=== PATIENT | male | born 1985 | race Caucasian/White ===

== ENCOUNTER 2021-02-03 16:42 | Emergency (ER) | payer MEDICARE, MEDICAID ==
--- NOTE | 2021-02-03 17:19 | EDM.PDOCBH ---
ED HPI GENERAL MEDICAL PROBLEM - General Stated Complaint: MEDICAL VIA [facility]TH Time Seen by Provider: 02/03/21 17:12 Source of Information: Reports: Patient, EMS History Limitations: Reports: Intoxication - History of Present Illness INITIAL COMMENTS - FREE TEXT/NARRATIVE: Is a 35-year-old gentleman who was transferred from [facility] to [facility] he was at the facility for approximately 4 hours became agitated slamming doors threatened suicidal ideation. EMS services were called transported to [place] emergency department for evaluation. Initially the gentleman was cooperative then became agitated using multiple swear words was threatening to staff. He did approach one of the nursing staff with an intimidating gesture then turned around and slammed the door. It was at this point time we called law enforcement I was concerned about staff safety. The gentleman asked if he could go I felt this was the best option to diffuse the situation. He was not on a hold he was under the influence of alcohol by the time law enforcement arrived we did not want to press charges therefore law enforcement took him into custody. ED ROS GENERAL - Review of Systems Review Of Systems: Unable To Obtain Reason Not Obtained: Uncooperative ED EXAM, BEHAVIORAL HEALTH - Physical Exam Exam: See Below Text/Narrative:: Gentleman displayed threatening behavior, intimidation to nursing staff, multiple swear words. Exam Limited By: Intoxication COURSE, BEHAVIORAL HEALTH COMP - Course Vital Signs: Last Vital Signs Temp 98.0 F 02/03/21 16:53 Pulse 116 H 02/03/21 16:53 Resp 18 02/03/21 16:53 BP 117/70 02/03/21 16:53 Pulse Ox 100 02/03/21 16:53 Departure - Departure Time of Disposition: 17:20 Disposition: Left Without Being Seen 07 Condition: Undetermined Clinical Impression: Threatening behavior, Threatening suicide, Alcohol intoxication - Discharge Information Referrals: PCP,None [Primary Care Provider] - Sepsis Event Note (ED) - Focused Exam Vital Signs: Vital Signs Temp Pulse Pulse Resp BP Pulse Ox 02/03/21 16:53 98.0 F 116 H 116 H 18 105/43 L 100
== END 2021-02-03 17:18 | disposition left against medical advice (07) ==
LOC: JP.ED 16:42
DX: F10.129 Alcohol abuse with intoxication, unspecified (principal); F91.9 Conduct disorder, unspecified
CPT/HCPCS: 99284

== ENCOUNTER 2021-02-03 21:53 | Emergency (ER) | payer MEDICARE, MEDICAID ==
--- NOTE | 2021-02-03 22:31 | EDM.PDOCBH ---
<Minor Brennan - Last Filed: 02/04/21 06:19> ED HPI GENERAL MEDICAL PROBLEM - General Chief Complaint: Behavioral/Psych Stated Complaint: MEDICAL VIA NORTH Time Seen by Provider: 02/03/21 21:55 Source of Information: Reports: Patient, Police History Limitations: Reports: Intoxication - History of Present Illness INITIAL COMMENTS - FREE TEXT/NARRATIVE: 35-year-old male, is here for the second time today. He was admitted to [facility] from another facility today and shortly after arriving became agitated, uncooperative and was "suicidal". They tried to discharge him but had to call EMS because of his aggravation. He was brought into the emergency room, initially was cooperative but then became disruptive and was discharged no longer saying he was suicidal but did not want to be examined any further. Apparently he left the hospital, with straight to the liquor store, got very intoxicated, went to [facility] to buy some food and then after he was done boldly staff that he was "suicidal". Again the police responded ambulance was called and now he is here. He is obviously very intoxicated. Onset: Unknown/Unsure - Related Data Allergies Allergy/AdvReac Type Severity Reaction Status Date / Time No Known Allergies Allergy Verified 02/03/21 23:28 Home Meds: Home Meds . [Unable to Verify Home Med List] 02/03/21 [History] ED ROS GENERAL - Review of Systems Review Of Systems: See Below (Patient is uncooperative with the review of systems, just simply states "I do not need to be here".) Respiratory: Denies: Shortness of Breath GI/Abdominal: Denies: Nausea, Vomiting Psychiatric: Reports: Other (Claims he is depressed and suicidal, admits to being admitted to psychiatric facilities in the past) ED EXAM, BEHAVIORAL HEALTH - Physical Exam Exam: See Below Exam Limited By: Intoxication General Appearance: No Apparent Distress Eye Exam: Bilateral Eye: Normal Inspection (No obvious jaundice) Head: Atraumatic Respiratory/Chest: No Respiratory Distress Cardiovascular: Regular Rate, Rhythm, Tachycardia Neurological: Alert Psychiatric: Depressed Mood, Inattentive Skin Exam: Warm, Dry COURSE, BEHAVIORAL HEALTH COMP - Course Re-Assessment/Re-Exam: Urine drug screen was obtained which was negative but EtOH is now 0.324. Glucose is 204, CBC normal. Patient passed out shortly after arrival, any kind of crisis intervention or attempted transfer at this time is not worthwhile. We will allow him to sober up and he can be reassessed. Patient remained cooperative through most of the night, did get some nausea and retching so was given some Zofran. Care turned over at 7AM Departure - Departure Disposition: DC/Tfer to Psych Hosp/Unit [facility] Clinical Impression: Alcohol abuse, Depression with suicidal ideation - Discharge Information Referrals: PCP,None [Primary Care Provider] - Forms: ED Department Discharge <Charles Mattson - Last Filed: 02/04/21 15:37> ED HPI GENERAL MEDICAL PROBLEM - History of Present Illness INITIAL COMMENTS - FREE TEXT/NARRATIVE: [employer] EMR reviewed for Mr. Anne. Multiple meds prescribed at that time. It doesn't appear like he has refilled any of them since last Mar. COURSE, BEHAVIORAL HEALTH COMP - Course Vital Signs: Last Vital Signs Temp 36.8 C 02/03/21 23:37 Pulse 131 H 02/03/21 23:37 Resp 11 L 02/03/21 23:37 BP 129/58 L 02/03/21 23:37 Pulse Ox 96 02/03/21 23:37 Orders, Labs, Meds: Active Orders 24 hr Category Date Time Status metFORMIN [Glucophage] Med 02/04/21 09:15 Active 1,000 mg PO BIDMEALS Medication Orders Metformin HCl (Metformin 500 Mg Tab) 1,000 mg PO BIDMEALS NIRANJAN Laboratory Tests 02/03/21 02/03/21 02/03/21 Range/Units 22:16 22:16 22:16 WBC 8.9 (4.5-11.0) K/uL RBC 4.54 (4.30-5.90) M/uL Hgb 13.4 (12.0-15.0) g/dL Hct 39.4 L (40.0-54.0) % MCV 87 (80-98) fL MCH 30 (27-31) pg MCHC 34 (32-36) % Plt Count 430 H (150-400) K/uL Neut % (Auto) 49.0 (36-66) % Lymph % (Auto) 44.2 H (24-44) % Yell % (Auto) 5.5 (2-6) % Eos % (Auto) 0.3 L (2-4) % Baso % (Auto) 1.0 (0-1) % Sodium 141 (140-148) mmol/L Potassium 3.5 L (3.6-5.2) mmol/L Chloride 103 (100-108) mmol/L Carbon Dioxide 24 (21-32) mmol/L Anion Gap 17.5 H (5.0-14.0) mmol/L BUN 14 (7-18) mg/dL Creatinine 0.8 (0.8-1.3) mg/dL Est Cr Clr Drug Dosing TNP Estimated GFR (MDRD) > 60 (>60) Glucose 204 H (74-106) mg/dL Calcium 8.2 L (8.5-10.1) mg/dL Magnesium (1.8-2.4) mg/dL TSH, Ultra Sensitive (0.358-3.740) uIU/mL Urine Color (YELLOW) Urine Appearance (CLEAR) Urine pH (5.0-8.0) Ur Specific Foster (1.008-1.030) Urine Protein (NEGATIVE) mg/dL Urine Glucose (UA) (NEGATIVE) mg/dL Urine Ketones (NEGATIVE) mg/dL Urine Occult Blood (NEGATIVE) Urine Nitrite (NEGATIVE) Urine Bilirubin (NEGATIVE) Urine Urobilinogen (0.2-1.0) EU/dL Ur Leukocyte Esterase (NEGATIVE) Urine RBC (0-5) Urine WBC (0-5) Ur Epithelial Cells Amorphous Sediment Urine Bacteria Urine Mucus Urine Other Urine Opiates Screen (NEGATIVE) Ur Oxycodone Screen (NEGATIVE) Urine Methadone Screen (NEGATIVE) Ur Propoxyphene Screen (NEGATIVE) Ur Barbiturates Screen (NEGATIVE) Ur Tricyclics Screen (NEGATIVE) Ur Phencyclidine Scrn (NEGATIVE) Ur Amphetamine Screen (NEGATIVE) U Methamphetamines Scrn (NEGATIVE) Urine MDMA Screen (NEGATIVE) U Benzodiazepines Scrn (NEGATIVE) U Cocaine Metab Screen (NEGATIVE) U Marijuana (THC) Screen (NEGATIVE) Ethyl Alcohol 325 mg/dL SARS CoV-2 RNA Rapid TIM 02/03/21 02/04/21 02/04/21 Range/Units 22:19 08:57 09:05 WBC (4.5-11.0) K/uL RBC (4.30-5.90) M/uL Hgb (12.0-15.0) g/dL Hct (40.0-54.0) % MCV (80-98) fL MCH (27-31) pg MCHC (32-36) % Plt Count (150-400) K/uL Neut % (Auto) (36-66) % Lymph % (Auto) (24-44) % Yell % (Auto) (2-6) % Eos % (Auto) (2-4) % Baso % (Auto) (0-1) % Sodium (140-148) mmol/L Potassium (3.6-5.2) mmol/L Chloride (100-108) mmol/L Carbon Dioxide (21-32) mmol/L Anion Gap (5.0-14.0) mmol/L BUN (7-18) mg/dL Creatinine (0.8-1.3) mg/dL Est Cr Clr Drug Dosing Estimated GFR (MDRD) (>60) Glucose (74-106) mg/dL Calcium (8.5-10.1) mg/dL Magnesium (1.8-2.4) mg/dL TSH, Ultra Sensitive (0.358-3.740) uIU/mL Urine Color Yellow (YELLOW) Urine Appearance Clear (CLEAR) Urine pH 7.0 (5.0-8.0) Ur Specific Foster >= 1.030 (1.008-1.030) Urine Protein 100 H (NEGATIVE) mg/dL Urine Glucose (UA) Negative (NEGATIVE) mg/dL Urine Ketones Trace H (NEGATIVE) mg/dL Urine Occult Blood Negative (NEGATIVE) Urine Nitrite Negative (NEGATIVE) Urine Bilirubin Negative (NEGATIVE) Urine Urobilinogen 0.2 (0.2-1.0) EU/dL Ur Leukocyte Esterase Negative (NEGATIVE) Urine RBC 0-5 (0-5) Urine WBC 0-5 (0-5) Ur Epithelial Cells Not seen Amorphous Sediment Not seen Urine Bacteria Rare Urine Mucus Moderate Urine Other Urine Opiates Screen Negative (NEGATIVE) Ur Oxycodone Screen Negative (NEGATIVE) Urine Methadone Screen Negative (NEGATIVE) Ur Propoxyphene Screen Negative (NEGATIVE) Ur Barbiturates Screen Negative (NEGATIVE) Ur Tricyclics Screen Negative (NEGATIVE) Ur Phencyclidine Scrn Negative (NEGATIVE) Ur Amphetamine Screen Negative (NEGATIVE) U Methamphetamines Scrn Negative (NEGATIVE) Urine MDMA Screen Negative (NEGATIVE) U Benzodiazepines Scrn Negative (NEGATIVE) U Cocaine Metab Screen Negative (NEGATIVE) U Marijuana (THC) Screen Negative (NEGATIVE) Ethyl Alcohol mg/dL SARS CoV-2 RNA Rapid TIM Negative 02/04/21 02/04/21 02/04/21 Range/Units 09:07 09:07 12:30 WBC (4.5-11.0) K/uL RBC (4.30-5.90) M/uL Hgb (12.0-15.0) g/dL Hct (40.0-54.0) % MCV (80-98) fL MCH (27-31) pg MCHC (32-36) % Plt Count (150-400) K/uL Neut % (Auto) (36-66) % Lymph % (Auto) (24-44) % Yell % (Auto) (2-6) % Eos % (Auto) (2-4) % Baso % (Auto) (0-1) % Sodium (140-148) mmol/L Potassium (3.6-5.2) mmol/L Chloride (100-108) mmol/L Carbon Dioxide (21-32) mmol/L Anion Gap (5.0-14.0) mmol/L BUN (7-18) mg/dL Creatinine (0.8-1.3) mg/dL Est Cr Clr Drug Dosing Estimated GFR (MDRD) (>60) Glucose (74-106) mg/dL Calcium (8.5-10.1) mg/dL Magnesium 2.0 (1.8-2.4) mg/dL TSH, Ultra Sensitive 0.522 (0.358-3.740) uIU/mL Urine Color (YELLOW) Urine Appearance (CLEAR) Urine pH (5.0-8.0) Ur Specific Foster (1.008-1.030) Urine Protein (NEGATIVE) mg/dL Urine Glucose (UA) (NEGATIVE) mg/dL Urine Ketones (NEGATIVE) mg/dL Urine Occult Blood (NEGATIVE) Urine Nitrite (NEGATIVE) Urine Bilirubin (NEGATIVE) Urine Urobilinogen (0.2-1.0) EU/dL Ur Leukocyte Esterase (NEGATIVE) Urine RBC (0-5) Urine WBC (0-5) Ur Epithelial Cells Amorphous Sediment Urine Bacteria Urine Mucus Urine Other Urine Opiates Screen (NEGATIVE) Ur Oxycodone Screen (NEGATIVE) Urine Methadone Screen (NEGATIVE) Ur Propoxyphene Screen (NEGATIVE) Ur Barbiturates Screen (NEGATIVE) Ur Tricyclics Screen (NEGATIVE) Ur Phencyclidine Scrn (NEGATIVE) Ur Amphetamine Screen (NEGATIVE) U Methamphetamines Scrn (NEGATIVE) Urine MDMA Screen (NEGATIVE) U Benzodiazepines Scrn (NEGATIVE) U Cocaine Metab Screen (NEGATIVE) U Marijuana (THC) Screen (NEGATIVE) Ethyl Alcohol < 3 mg/dL SARS CoV-2 RNA Rapid TIM Medications Generic Name Dose Route Start Last Admin Trade Name Freq PRN Reason Stop Dose Admin Metformin HCl 1,000 mg 02/04/21 09:15 Metformin 500 Mg Tab PO BIDMEALS NIRANJAN Discontinued Medications Generic Name Dose Route Start Last Admin Trade Name Freq PRN Reason Stop Dose Admin Ondansetron HCl 4 mg 02/04/21 02:09 02/04/21 02:20 Ondansetron 4 Mg Tab.Dis PO 02/04/21 02:10 4 mg ONETIME ONE Administration Potassium Chloride 40 meq 02/04/21 08:59 02/04/21 09:08 Potassium Chloride 20 Meq Tab.Er PO 02/04/21 09:00 40 meq ONETIME ONE Administration Thiamine HCl 100 mg 02/04/21 10:07 02/04/21 10:11 Thiamine 100 Mg Tab PO 02/04/21 10:08 100 mg ONETIME ONE Administration Medical Clearance: 02/04/21 15:37 medically stable for transfer to [facility] Departure - Departure Time of Disposition: 17:00 Condition: Fair - My Orders Last 24 Hours: My Active Orders 02/04/21 09:15 metFORMIN [Glucophage] 1,000 mg PO BIDMEALS - Assessment/Plan Last 24 Hours: My Active Orders 02/04/21 09:15 metFORMIN [Glucophage] 1,000 mg PO BIDMEALS
[2021-02-04] MEDS ORDERED: Ondansetron 4 MG Tab.DIS PO ONE (02:09)
[2021-02-04] MEDS ORDERED: Potassium Chloride 20 MEQ Tab.ER PO ONE (08:59)
[2021-02-04] MEDS ORDERED: metFORMIN 500 MG Tab PO SCH ×2 (09:15→17:00)
[2021-02-04] MEDS ORDERED: Thiamine 100 MG Tab PO ONE (10:07)
== END 2021-02-04 17:42 ==
LOC: JP.ED 21:53
DX: F32.9 Major depressive disorder, single episode, unspecified (principal); F10.10 Alcohol abuse, uncomplicated; Y90.8 Blood alcohol level of 240 mg/100 ml or more; Z20.822 Contact with and (suspected) exposure to COVID-19
CPT/HCPCS: 36415; 80048; 80305; 80307; 81001; 83735; 84443; 85025; 99285; A9270; U0002